=== PATIENT | female | born 1980 | race Caucasian/White ===

== ENCOUNTER 2016-11-14 13:57 | Emergency (ER) | payer OTHER ==
[~2016-11-14] VITALS: Ht 170.2 cm; Wt 89.4 kg
[~2016-11-14 13:57] MED LIST: IBUP80TA PO
[2016-11-14 16:11] VITALS: BP 139/88
--- NOTE | 2016-11-14 16:59 | REP ---
PELVIC ULTRASOUND: Real-time sonographic evaluation of the pelvis was performed utilizing transabdominal and endovaginal technique. The bladder measures 4.3 x 2.0 x 6.3 cm. The uterus measures 7.8 x 4.3 x 6.3 cm. Focal rounded echogenic structure in the endometrial cavity surrounded by a tiny amount of fluid may represent a polyp. This measures 1.0 x 1.0 x 1.4 cm. Right ovary measures 2.5 x 1.8 x 2.4 cm and contains a 6 mm echogenic focus which may represent a tiny dermoid. The left ovary measures 2.6 x 1.2 x 2.1 cm. There is no evidence of ovarian torsion with blood flow seen in each ovary with duplex Doppler evaluation. There is no other evidence of adnexal mass. There is trace free fluid. IMPRESSION: Probable endometrial polyp measuring 1.0 x 1.0 x 1.4 cm. Surrounded by a tiny amount of endometrial fluid. No torsion. Trace free fluid. 6 mm echogenic focus in the right ovary may represent a tiny dermoid. Signed by Julian Brewer MD 11/14/2016 05:01 P
== END 2016-11-14 16:23 | disposition home or self-care (01) ==
LOC: M ED 15:52
DX: N93.9 Abnormal uterine and vaginal bleeding, unspecified (principal)

== ENCOUNTER 2016-12-07 06:07 | Day surgery (SDC) | payer OTHER ==
[~2016-12-07] VITALS: Ht 170.2 cm; Wt 97.5 kg
[2016-12-07] VITALS (8 sets, daily range): BP systolic 108–129; BP diastolic 58–80
[2016-12-07] MEDS ORDERED: LR 1,000 ML IV ONE (06:15)
[2016-12-07] MEDS ORDERED: ACETAMINOPHEN 650 MG SUPP PR ONE (06:30)
[2016-12-07 06:42] LABS: MEAN CORPUSCULAR HEMOGLOBIN 33.9 pg (27.0-33.0); MEAN CORPUSCULAR HGB CONC 34.5 g/dl (32.0-36.5); MEAN CORPUSCULAR VOLUME 98.3 fl (80.0-96.0); RED CELL DISTRIBUTION WIDTH 13.7 % (11.5-14.5); WHITE BLOOD COUNT 9.7 K/mm3 (4.0-10.0)
[2016-12-07 06:55] LABS: ANION GAP 10 MEQ/L (8-16); BLOOD UREA NITROGEN 7 MG/DL (7-18); CARBON DIOXIDE LEVEL 21 MEQ/L (21-32); CHLORIDE LEVEL 109 MEQ/L (98-107); CREATININE FOR GFR 0.89 MG/DL (0.55-1.02); GLOMERULAR FILTRATION RATE > 60.0 (>60); GLUCOSE, FASTING 91 MG/DL (70-105); POTASSIUM SERUM 3.5 MEQ/L (3.5-5.1); SODIUM LEVEL 140 MEQ/L (136-145)
[2016-12-07] MEDS ORDERED: ACETAMINOPHEN 650 MG SUPP As Ordered ONE (07:10)
[2016-12-07] MEDS ORDERED: BUPIVACAINE/EPIN 0.25% 30 ML VIAL As Ordered ONE (07:10)
[2016-12-07] MEDS ORDERED: VASOPRESSIN INJ 20 UNITS/ML VIAL As Ordered ONE (07:10)
[2016-12-07] MEDS ORDERED: PROPOFOL 200 MG/20 ML VIAL As Ordered ONE (07:11)
[2016-12-07] MEDS ORDERED: ROCURONIUM BROMIDE 50 MG/5 ML VIAL As Ordered ONE (07:12)
[2016-12-07] MEDS ORDERED: MIDAZOLAM INJ 2 MG/2 ML VIAL (J2250) As Ordered ONE (07:12)
[2016-12-07] MEDS ORDERED: LIDOCAINE 2% INJ 100 MG/5 ML SDV (FOR ANES.) As Ordered ONE (07:12)
[2016-12-07] MEDS ORDERED: fentaNYL 100 MCG/2 ML INJECTION (J3010) As Ordered ONE ×2 (07:12→08:03)
[2016-12-07] MEDS ORDERED: ONDANSETRON 4MG/2ML VIAL (J2405) As Ordered ONE (07:12)
[2016-12-07] MEDS ORDERED: dexameTHASONE 4 MG/ML 1ML VIAL (J1100) As Ordered ONE (07:18)
[2016-12-07] MEDS ORDERED: ePHEDrine SULFATE 25 MG/5 ML(5MG/ML) SYRINGE As Ordered ONE (07:49)
[2016-12-07] MEDS ORDERED: PERC5TAB6 PO (07:58)
[2016-12-07] MEDS ORDERED: HYDROmorphone HCL 2 MG/ML 1ML VIAL (J1170) As Ordered ONE (08:11)
[2016-12-07] MEDS ORDERED: FLUORESCEIN 10% (100MG/ML) 5 ML VIAL As Ordered ONE (08:42)
[2016-12-07] MEDS ORDERED: GLYCOPYRROLATE INJ 0.2 MG/ML 2 ML VIAL As Ordered ONE (08:57)
[2016-12-07] MEDS ORDERED: NEOSTIGMINE 1MG/ML 5 ML SYRINGE (J2710) As Ordered ONE (08:57)
[2016-12-07] MEDS ORDERED: MORPHINE 10 MG/ML 1ML VIAL As Ordered ONE (09:49)
[2016-12-07] MEDS: MORPHINE 2 MG/ML 1ML SYRINGE IV PRN ×3 (09:52→10:30)
[2016-12-07] MEDS ORDERED: PERCOCET 5MG/325MG TAB As Ordered ONE (10:03)
[2016-12-07] MEDS ORDERED: METOCLOPRAMIDE INJ 10MG/2ML VIAL (J2765) IV PRN (10:15)
[2016-12-07] MEDS ORDERED: ONDANSETRON 4MG/2ML VIAL (J2405) IV PRN (10:15)
[2016-12-07] MEDS ORDERED: fentaNYL 100 MCG/2 ML INJECTION (J3010) IV PRN (10:15)
[2016-12-07] MEDS ORDERED: LR 1,000 ML IV SCH ×2 (10:15)
[2016-12-07] MEDS ORDERED: PERCOCET 5MG/325MG TAB PO PRN (10:15)
[2016-12-07] MEDS ORDERED: IBUPROFEN 800 MG TAB PO SCH (10:15)
[2016-12-07] MEDS ORDERED: SIMETHICONE 80 MG CHEW TAB PO SCH (10:30)
[2016-12-07] MEDS: SIMETHICONE 80 MG CHEW TAB PO SCH ×2 (13:01→18:25)
[2016-12-07] MEDS: PERCOCET 5MG/325MG TAB PO PRN ×2 (14:09→19:30)
[2016-12-07] MEDS: IBUPROFEN 800 MG TAB PO SCH (18:25)
--- NOTE | 2016-12-07 20:58 | RO ---
DATE OF PROCEDURE: 12/07/2016 SUMMARY: This is a 36-year-old female with extensive history of normal uterine bleeding. She is post an endometrial ablation. She also complained of pelvic pain and was found to have and endometrial polyp. After counseling, a decision was made for total laparoscopic hysterectomy, removal of both tubes and preservation of the ovary if possible. PREOPERATIVE DIAGNOSES: 1. Abnormal uterine bleeding post endometrial ablation. 2. Pelvic pain. 3. Endometrial polyp. POSTOPERATIVE DIAGNOSES: 1. Abnormal uterine bleeding post endometrial ablation. 2. Pelvic pain. 3. Endometrial polyp. 4. Pelvic adhesion. ANESTHESIA: General. SURGEON: Rodríguez Gee DO TRACTOR TRAILER DRIVER: ANESTHESIA: General. COMPLICATIONS: None. ESTIMATED BLOOD LOSS: Less than 50 mL. PROCEDURE: 1. Total laparoscopic hysterectomy. 2. Bilateral salpingectomies 3. Lysis of adhesions. 4. Cystoscopy. FINDINGS: Normal-appearing uterus adherent to the lower uterine segment as well as the pelvic sidewall. Cystoscopy: Bilateral urethral jets were noted with yellow dye coming out of the ureters. No evidence of any bladder injury noted. DESCRIPTION OF PROCEDURE: After obtaining informed consent, the patient was taken to the operating room where general anesthetic was found to be adequate. She was then draped and prepped usual sterile fashion in dorsal lithotomy position. At this point, a Becerril catheter was placed in the bladder for drainage. We then turned our attention to the vagina where HUMI 2 uterine manipulator was placed. After proper placement of the HUMI 2 uterine manipulator, I then went up to the patient's abdominal area. A 10 mm supraumbilical incision was made using the Veress needle. The abdomen was insufflated with CO2 gas to approximately 3.5 liters and 11 mm trocar was inserted under direct visualization. At this point, 11 mm port was placed on the left side and a trocar was inserted under direct visualization and a 5 mm port was placed on the right side. The patient was placed in Trendelenburg. The fallopian tube was then identified. The adhesions around the fallopian tubes were removed using the KWAME Harmonic scalpel. The fallopian tube was then dissected off through the mesosalpinx up to the utero-ovarian ligament. The utero-ovarian ligament was then cauterized and cut. The round ligament also cauterized and cut. At this point the anterior leaflet of the broad ligament was dissected to create a bladder flap. The uterine arteries were skeletonized and uterine artery was then coagulated and cut using the KWAME Harmonic scalpel. The opposite side was done in a similar fashion. The bladder was found to be adherent to the lower uterine segment. This was carefully taken down with the KWAME Harmonic scalpel completing the bladder flap. The bladder was pushed out of the operative field. The uterine manipulator cup could be felt at the lower uterine segment in the vagina. Anterior colpotomy was performed. A posterior colpotomy also performed in a similar fashion. At this point the uterus, cervix and the fallopian tubes was removed through the vagina and left in the vagina to maintain pneumoperitoneum. An Endo stitch was then introduced into the abdominal cavity and the vaginal cuff was closed in a running fashion using the V-Loc suture through the Endo stitch. Good hemostasis noted. The peritoneum over the vaginal cuff was also closed. The pelvis copiously irrigated with normal saline and suctioned out. A small amount of oozing was noted at the right ovary where a Kleppinger was used to coagulate that tiny vessel. Good hemostasis noted. 1 mL of Furacin was given by the anesthesiologist, IV. I then went to the patient's vagina, retrograde filled the bladder with approximately 250 mL. The Becerril catheter was removed. A cystoscope was inserted. Bilateral ureteral jets noted with yellow dye coming out of the ureters. No evidence of any bladder injury noted. At this point, the cystoscope was removed. The Becerril catheter was replaced and the bladder was drained. We then closed the laparoscopic ports using #3-0 Vicryl and Dermabond. 0.25% Marcaine was placed for postoperative pain. The patient tolerated the procedure well. She was then transferred to recovery room in stable condition.
[2016-12-08] VITALS: BP 108/56
[2016-12-08] MEDS: SIMETHICONE 80 MG CHEW TAB PO SCH ×2 (00:16→05:48)
[2016-12-08] MEDS: IBUPROFEN 800 MG TAB PO SCH ×2 (00:17→05:48)
[2016-12-08 04:00] VITALS: BP 114/73
[2016-12-08] MEDS: PERCOCET 5MG/325MG TAB PO PRN (07:45)
[2016-12-08 08:00] VITALS: BP 116/63
== END 2016-12-08 10:25 | disposition home or self-care (01) ==
LOC: M SDC 06:07 → M PED 10:45 → M SDC 12-08 10:25
PROVIDERS: ATTEND Obstetrics & Gynecology
DX: N93.9 Abnormal uterine and vaginal bleeding, unspecified (principal); N84.0 Polyp of corpus uteri; N73.6 Female pelvic peritoneal adhesions (postinfective); K90.0 Celiac disease; K21.9 Gastro-esophageal reflux disease without esophagitis; F41.9 Anxiety disorder, unspecified; G43.909 Migraine, unspecified, not intractable, without status migrainosus; F17.210 Nicotine dependence, cigarettes, uncomplicated; Z98.51 Tubal ligation status

== ENCOUNTER 2017-07-26 14:47 | Emergency (ER) | payer OTHER ==
[2017-07-26] MEDS: NS 1,000 ML IV (15:45)
[2017-07-26] MEDS: MORPHINE 4 MG/ML 1ML SYRINGE IV ×2 (15:45→17:27)
[2017-07-26 15:47] LABS: BASO % 0.4 % (0.0-1.0); EOS % 0.4 % (0.0-3.0); HEMOGLOBIN 14.2 g/dl (12.0-16.0); IMMATURE GRANULOCYTE % 0.4 % (0-0); LYMPH # 2.5 10^3/uL (1.5-4.5); LYMPH % 26.1 % (24.0-44.0); MEAN CORPUSCULAR HEMOGLOBIN 32.9 pg (27.0-33.0); MEAN CORPUSCULAR HGB CONC 34.6 g/dl (32.0-36.5); MEAN CORPUSCULAR VOLUME 94.9 fl (80.0-96.0); MONO # 0.6 10^3/uL (0.0-0.8); MONO % 6.1 % (0.0-5.0); NEUTROPHILS # 6.4 10^3/uL (1.8-7.7); NEUTROPHILS % 66.6 % (36.0-66.0); PLATELET COUNT, AUTOMATED 501 10^3/uL (150-450); RED BLOOD COUNT 4.32 10^6/uL (4.00-5.40); RED CELL DISTRIBUTION WIDTH 12.9 % (11.5-14.5); WHITE BLOOD COUNT 9.6 10^3/uL (4.0-10.0)
[2017-07-26 15:50] LABS: KETONE, URINE AUTO RFX 1+ mg/dL (NEGATIVE); LEUKOCYTE ESTERASE UR AUTO RFX NEGATIVE (NEGATIVE); MUCUS, URINE RFX SMALL (NEGATIVE); NITRITE, URINE AUTO RFX NEGATIVE (NEGATIVE); RBC, URINE AUTO RFX 3 /HPF (0-3); SPECIFIC GRAVITY UR AUTO RFX 1.019 (1.002-1.035); SQUAM EPITHELIAL CELL UR AURFX 2 /HPF (0-6); WBC, URINE AUTO RFX 1 /HPF (0-3)
[2017-07-26] MEDS: GASTROGRAFIN SOLUTION 30ML (Q9963) PO ×2 (15:54→16:30)
[2017-07-26 15:56] LABS: CONTROL LINE HCG INT CTR LINE PRESENT; HCG, SERUM QUALITATIVE NEGATIVE (NEGATIVE)
[2017-07-26 16:01] LABS: ALKALINE PHOSPHATASE 73 U/L (45-117); ALT/SGPT 22 U/L (12-78); ANION GAP 13 MEQ/L (8-16); AST/SGOT 24 U/L (7-37); BILIRUBIN,DIRECT < 0.1 MG/DL (0.0-0.2); BILIRUBIN,TOTAL 0.6 MG/DL (0.2-1.0); BLOOD UREA NITROGEN 11 MG/DL (7-18); CARBON DIOXIDE LEVEL 21 MEQ/L (21-32); CHLORIDE LEVEL 105 MEQ/L (98-107); CREATININE FOR GFR 0.81 MG/DL (0.55-1.02); GLOMERULAR FILTRATION RATE > 60.0 (>60); GLUCOSE, FASTING 90 MG/DL (70-105); LIPASE 198 U/L (73-393); POTASSIUM SERUM 3.5 MEQ/L (3.5-5.1); SODIUM LEVEL 139 MEQ/L (136-145)
[2017-07-26] MEDS ORDERED: ISOVUE-370 76% 100ML VIAL (Q9967) As Ordered (17:09)
== END 2017-07-26 18:39 | disposition home or self-care (01) ==
LOC: M ED 14:47
DX: K42.9 Umbilical hernia without obstruction or gangrene (principal); K90.0 Celiac disease; G43.909 Migraine, unspecified, not intractable, without status migrainosus; M54.9 Dorsalgia, unspecified; F17.210 Nicotine dependence, cigarettes, uncomplicated
CPT/HCPCS: Q9963

== ENCOUNTER 2017-09-06 10:38 | Emergency (ER) | payer OTHER ==
[2017-09-06 11:31] LABS: BEDSIDE GLUCOSE 97 MG/DL (70-105)
[2017-09-06] MEDS: NS 1,000 ML IV (11:49)
[2017-09-06] MEDS: ONDANSETRON 4MG/2ML VIAL (J2405) IV (11:49)
[2017-09-06 11:56] LABS: BASO % 0.2 % (0.0-1.0); EOS % 0.1 % (0.0-3.0); HEMATOCRIT 43.6 % (36.0-47.0); HEMOGLOBIN 15.3 g/dl (12.0-16.0); IMMATURE GRANULOCYTE % 0.4 % (0-3.0); LYMPH # 3.2 10^3/uL (1.5-4.5); LYMPH % 29.3 % (24.0-44.0); MEAN CORPUSCULAR HEMOGLOBIN 31.8 pg (27.0-33.0); MEAN CORPUSCULAR HGB CONC 35.1 g/dl (32.0-36.5); MEAN CORPUSCULAR VOLUME 90.6 fl (80.0-96.0); MONO # 0.6 10^3/uL (0.0-0.8); NEUTROPHILS # 7.1 10^3/uL (1.8-7.7); PLATELET COUNT, AUTOMATED 486 10^3/uL (150-450); RED BLOOD COUNT 4.81 10^6/uL (4.00-5.40); RED CELL DISTRIBUTION WIDTH 12.6 % (11.5-14.5); WHITE BLOOD COUNT 10.9 10^3/uL (4.0-10.0)
[2017-09-06 12:12] LABS: AMORPHOUS SEDIMENT RFX SMALL (NEGATIVE); KETONE, URINE AUTO RFX 1+ mg/dL (NEGATIVE); LEUKOCYTE ESTERASE UR AUTO RFX NEGATIVE (NEGATIVE); MUCUS, URINE RFX SMALL (NEGATIVE); NITRITE, URINE AUTO RFX NEGATIVE (NEGATIVE); RBC, URINE AUTO RFX 1 /HPF (0-3); SPECIFIC GRAVITY UR AUTO RFX 1.019 (1.002-1.035); SQUAM EPITHELIAL CELL UR AURFX 4 /HPF (0-6); WBC, URINE AUTO RFX 3 /HPF (0-3)
[2017-09-06] MEDS ORDERED: KETOROLAC 30 MG/ML VIAL (J1885) IV (12:15)
[2017-09-06 12:16] LABS: ALBUMIN 4.2 GM/DL (3.2-5.2); ALBUMIN/GLOBULIN RATIO 1.17 (1.00-1.93); ALKALINE PHOSPHATASE 74 U/L (45-117); ALT/SGPT 20 U/L (12-78); ANION GAP 11 MEQ/L (8-16); AST/SGOT 14 U/L (7-37); BILIRUBIN,DIRECT 0.1 MG/DL (0.0-0.2); BILIRUBIN,TOTAL 0.6 MG/DL (0.2-1.0); BLOOD UREA NITROGEN 10 MG/DL (7-18); CALCIUM LEVEL 9.4 MG/DL (8.5-10.1); CARBON DIOXIDE LEVEL 24 MEQ/L (21-32); CHLORIDE LEVEL 103 MEQ/L (98-107); CREATININE FOR GFR 0.86 MG/DL (0.55-1.30); GLOMERULAR FILTRATION RATE > 60.0 (>60); GLUCOSE, FASTING 96 MG/DL (70-100); POTASSIUM SERUM 3.8 MEQ/L (3.5-5.1); SODIUM LEVEL 138 MEQ/L (136-145); TOTAL PROTEIN 7.8 GM/DL (6.4-8.2)
[2017-09-06] MEDS: KETOROLAC 30 MG/ML VIAL (J1885) IV (12:22)
[2017-09-06 12:23] LABS: INFLUENZA A AMPLIFICATION NEGATIVE (NEGATIVE); INFLUENZA B AMPLIFICATION NEGATIVE (NEGATIVE)
== END 2017-09-06 13:54 | disposition home or self-care (01) ==
LOC: M ED 10:38
DX: J20.9 Acute bronchitis, unspecified (principal); F17.200 Nicotine dependence, unspecified, uncomplicated; R11.10 Vomiting, unspecified
CPT/HCPCS: J2405

== ENCOUNTER 2017-11-01 07:24 | Emergency (ER) | payer OTHER ==
[2017-11-01] MEDS: NS 1,000 ML IV ×2 (08:09→09:20)
[2017-11-01] MEDS: METOCLOPRAMIDE INJ 10MG/2ML VIAL (J2765) IV (08:09)
[2017-11-01 08:14] LABS: BASO % 0.4 % (0.0-1.0); EOS % 0.2 % (0.0-3.0); HEMATOCRIT 44.5 % (36.0-47.0); HEMOGLOBIN 15.5 g/dl (12.0-15.5); IMMATURE GRANULOCYTE % 0.3 % (0-3.0); LYMPH # 1.9 10^3/uL (1.5-4.5); LYMPH % 19.1 % (24.0-44.0); MEAN CORPUSCULAR HEMOGLOBIN 32.3 pg (27.0-33.0); MEAN CORPUSCULAR HGB CONC 34.8 g/dl (32.0-36.5); MEAN CORPUSCULAR VOLUME 92.7 fl (80.0-96.0); MONO # 0.4 10^3/uL (0.0-0.8); NEUTROPHILS # 7.4 10^3/uL (1.8-7.7); PLATELET COUNT, AUTOMATED 473 10^3/uL (150-450); RED CELL DISTRIBUTION WIDTH 13.3 % (11.5-14.5); WHITE BLOOD COUNT 9.7 10^3/uL (4.0-10.0)
[2017-11-01 08:20] LABS: APPEARANCE, URINE CLOUDY (CLEAR); BACTERIA, URINE AUTO 1+ (NEGATIVE); BILIRUBIN, URINE AUTO NEGATIVE (NEGATIVE); BLOOD, URINE BLOOD 1+ (NEGATIVE); COLOR, URINE YELLOW (YELLOW); GLUCOSE, URINE (UA) AUTO NEGATIVE (NEGATIVE); KETONE, URINE AUTO TRACE mg/dL (NEGATIVE); LEUKOCYTE ESTERASE, URINE AUTO NEGATIVE (NEGATIVE); MUCUS, URINE SMALL (NEGATIVE); NITRITE, URINE AUTO NEGATIVE (NEGATIVE); PROTEIN, URINE AUTO 1+ mg/dL (NEGATIVE); RBC, URINE AUTO 1 /HPF (0-3); SPECIFIC GRAVITY URINE AUTO 1.028 (1.002-1.035); SQUAMOUS EPITHELIAL CELL UR AU 13 /HPF (0-6); UROBILINOGEN, URINE AUTO 0.2 mg/dL (0.0-2.0); WBC, URINE AUTO 1 /HPF (0-3)
[2017-11-01 08:26] LABS: D-DIMER QUANT 328.7 ng/ml (<500)
[2017-11-01 08:47] LABS: ALBUMIN/GLOBULIN RATIO 0.91 (1.00-1.93); ALKALINE PHOSPHATASE 64 U/L (45-117); ALT/SGPT 25 U/L (12-78); AMYLASE 55 U/L (25-115); ANION GAP 14 MEQ/L (8-16); AST/SGOT 22 U/L (7-37); BILIRUBIN,DIRECT < 0.1 MG/DL (0.0-0.2); BILIRUBIN,TOTAL 0.5 MG/DL (0.2-1.0); BLOOD UREA NITROGEN 12 MG/DL (7-18); C REACTIVE PROTEIN QUANTITATIV < 0.30 MG/DL (0.00-0.30); CALCIUM LEVEL 9.4 MG/DL (8.5-10.1); CARBON DIOXIDE LEVEL 17 MEQ/L (21-32); CHLORIDE LEVEL 106 MEQ/L (98-107); CPK CREATINE PHOSPHOKINASE 95 U/L (26-192); CREATININE FOR GFR 1.15 MG/DL (0.55-1.30); GLOMERULAR FILTRATION RATE 56.5 (>60); GLUCOSE, FASTING 140 MG/DL (70-100); LIPASE 203 U/L (73-393); POTASSIUM SERUM 3.3 MEQ/L (3.5-5.1); SODIUM LEVEL 137 MEQ/L (136-145); TOTAL PROTEIN 8.4 GM/DL (6.4-8.2); TROPONIN I < 0.02 NG/ML (< 0.10)
[2017-11-01 08:48] LABS: CK-MB VALUE MASS 1.1 NG/ML (<3.6); HCG, SERUM QUANTITATIVE < 1.0 MIU/ML; MB/CK RELATIVE INDEX 1.15 (< OR =4)
[2017-11-01 08:55] LABS: LACTIC ACID SEPSIS PROTOCOL 5.1 MMOL/L (0.4-2.0)
[2017-11-01 11:03] LABS: LACTIC ACID SEPSIS PROTOCOL 1.4 MMOL/L (0.4-2.0)
== END 2017-11-01 11:29 | disposition home or self-care (01) ==
LOC: M ED 07:24
DX: E86.0 Dehydration (principal); K90.0 Celiac disease; F41.9 Anxiety disorder, unspecified; F17.200 Nicotine dependence, unspecified, uncomplicated; Z87.42 Personal history of other diseases of the female genital tract; Z98.890 Other specified postprocedural states
CPT/HCPCS: J2765

== ENCOUNTER 2019-04-12 10:58 | Emergency (ER) | payer MEDICAID, OTHER, SELFPAY ==
[~2019-04-12] VITALS: Ht 170.2 cm; Wt 91.1 kg
[~2019-04-12 10:58] MED LIST changes: +DOXY-350 PO; +MUCI600T37 PO; +PERC5TAB12 PO; +VENTAER IN; +ZOFR4TAB14 PO
[2019-04-12] MEDS ORDERED: NS 1,000 ML IV ONE (11:45)
[2019-04-12] MEDS ORDERED: KETOROLAC 30 MG/ML VIAL (J1885) IV ONE (11:45)
[2019-04-12 11:46] LABS: BASO # 0.1 10^3/uL (0.0-0.2); BASO % 0.5 % (0.0-1.0); EOS # 0.1 10^3/uL (0.0-0.5); HEMOGLOBIN 15.2 g/dl (12.0-15.5); LYMPH # 3.6 10^3/uL (1.5-5.0); LYMPH % 33.9 % (24.0-44.0); MEAN CORPUSCULAR HEMOGLOBIN 32.1 pg (27.0-33.0); MEAN CORPUSCULAR HGB CONC 34.5 g/dl (32.0-36.5); MONO # 0.8 10^3/uL (0.0-0.8); MONO % 7.2 % (0.0-5.0); NEUTROPHILS # 6.1 10^3/uL (1.5-8.5); NEUTROPHILS % 56.8 % (36.0-66.0); PLATELET COUNT, AUTOMATED 475 10^3/uL (150-450); RED BLOOD COUNT 4.73 10^6/uL (4.00-5.40); WHITE BLOOD COUNT 10.7 10^3/uL (4.0-10.0)
[2019-04-12] MEDS ORDERED: MORPHINE 2 MG/ML 1ML VIAL (J2270) IV ONE (12:00)
[2019-04-12 12:02] LABS: ALBUMIN 3.5 GM/DL (3.2-5.2); ALT/SGPT 26 U/L (12-78); BILIRUBIN,DIRECT < 0.1 MG/DL (0.0-0.2); BILIRUBIN,TOTAL 0.2 MG/DL (0.2-1.0); BLOOD UREA NITROGEN 12 MG/DL (7-18); CALCIUM LEVEL 8.6 MG/DL (8.5-10.1); CARBON DIOXIDE LEVEL 22 MEQ/L (21-32); CHLORIDE LEVEL 109 MEQ/L (98-107); CREATININE FOR GFR 0.84 MG/DL (0.55-1.30); GLOMERULAR FILTRATION RATE > 60.0 (>60); GLUCOSE, FASTING 86 MG/DL (70-100); LIPASE 219 U/L (73-393); POTASSIUM SERUM 4.2 MEQ/L (3.5-5.1); SODIUM LEVEL 139 MEQ/L (136-145); TOTAL PROTEIN 6.8 GM/DL (6.4-8.2)
--- NOTE | 2019-04-12 13:14 | REP ---
CT of the abdomen and pelvis without IV and oral contrast for right upper quadrant pain and right flank pain: Comparison is 07/26/2017. The visualized lung chapa are unremarkable except for dependent atelectasis. The unenhanced hepatic parenchyma, gallbladder, pancreas and spleen are unremarkable. The adrenals are unremarkable. The kidneys are unremarkable, there are no renal calculi. No perinephric stranding. No hydronephrosis. There is no hydroureter. No ureteral calculi. No bladder calculi. The bowel and mesentery are unremarkable. Pelvis: There are appendicoliths. The appendix is otherwise unremarkable. The bladder is unremarkable. No bladder calculi. There is a ligation clip on the right. There is no ligation clip on the left, however, there were bilateral tubal ligation clips on a supine plain film view of the abdomen 02/19/2014. The the patient reportedly has had a hysterectomy. Vaginal cuff and adnexa are otherwise unremarkable. There is no ascites or adenopathy. There is a fat-containing umbilical hernia, unchanged. Impression: The gallbladder, pancreas and spleen are unremarkable. There is no hydronephrosis or hydroureter. There are no renal, ureteral or bladder calculi. There is a fat-containing umbilical hernia, unchanged. There is no ascites or adenopathy. No mass. There is a hysterectomy. There is a remaining right tubal ligation clip in the pelvis. No left ligation clip. There are appendicoliths, however the appendix is otherwise unremarkable. Electronically Signed by Julian Rosen MD 04/12/2019 01:05 P
[2019-04-12 13:45] VITALS: BP 108/66
== END 2019-04-12 14:06 | disposition home or self-care (01) ==
LOC: M ED 10:58
DX: R10.11 Right upper quadrant pain (principal); R11.2 Nausea with vomiting, unspecified; K90.0 Celiac disease; F17.210 Nicotine dependence, cigarettes, uncomplicated
CPT/HCPCS: 74176; 80048; 80076; 81001; 83690; 84702; 85025; 96361; 96374; 96375; 99284; J1885; J2270

== ENCOUNTER → 2021-06-12 | Outpatient (CLI) | payer OTHER ==
--- NOTE | 2021-06-12 17:51 | REP ---
INDICATION: L SHOULDER PAIN, R/O TENDONITIS. COMPARISON: None. TECHNIQUE: Three views of the left shoulder were obtained. FINDINGS: There is no evidence of fracture or dislocation. The glenohumeral and acromioclavicular joints are normal. The periarticular soft tissues are normal. The visualized left lung is normal. IMPRESSION: Normal left shoulder. <Electronically signed by Haroon Rose > 06/12/21 [id number]
== END ==
LOC: M RAD 17:30
PROVIDERS: ATTEND Physician Assistant Medical
DX: M25.512 Pain in left shoulder (principal)

== ENCOUNTER → 2023-05-23 | Outpatient (CLI) | payer OTHER ==
[~2023-05-23] MED LIST changes: -DOXY-350 PO; +DOXY-444 PO; +E-Z-GAS II EFFERVESCENT PACKET (SODIUM BICARB./CITRIC ACID/SIMETHICONE) As Ordered ONE; +E-Z-HD 98% w/w 340GM SUSP BTL As Ordered ONE; +E-Z-PAQUE 96% w/w SUSP 176GM BTL As Ordered ONE
== END ==
LOC: M RAD 07:57
PROVIDERS: ATTEND Surgery
DX: R19.7 Diarrhea, unspecified (principal)

== ENCOUNTER 2024-01-13 11:20 | Day surgery (SDC) | payer OTHER ==
[~2024-01-13] VITALS: Ht 167.6 cm; Wt 102.6 kg
[~2024-01-13 11:20] MED LIST changes: +DOXY-440 PO; -DOXY-444 PO; -E-Z-GAS II EFFERVESCENT PACKET (SODIUM BICARB./CITRIC ACID/SIMETHICONE) As Ordered ONE; -E-Z-HD 98% w/w 340GM SUSP BTL As Ordered ONE; -E-Z-PAQUE 96% w/w SUSP 176GM BTL As Ordered ONE; +NS 1,000 ML IV ONE
[2024-01-13 13:08] VITALS: BP 118/72; O2SAT 97
== END 2024-01-13 13:15 | disposition home or self-care (01) ==
LOC: M OPP 11:20
PROVIDERS: ATTEND Internal Medicine Gastroenterology
DX: K64.8 Other hemorrhoids (principal); K62.89 Other specified diseases of anus and rectum; R19.7 Diarrhea, unspecified; K44.9 Diaphragmatic hernia without obstruction or gangrene; K29.70 Gastritis, unspecified, without bleeding; K31.7 Polyp of stomach and duodenum; K31.89 Other diseases of stomach and duodenum; Z79.1 Long term (current) use of non-steroidal anti-inflammatories (NSAID)

== ENCOUNTER 2024-02-07 09:07 | Day surgery (SDC) | payer OTHER ==
[~2024-02-07] VITALS: Ht 167.6 cm; Wt 102.8 kg
[~2024-02-07 09:07] MED LIST changes: -NS 1,000 ML IV ONE
[2024-02-07] MEDS: NS 1,000 ML IV ONE (10:18)
[2024-02-07] MEDS ORDERED: propofoL 200 MG/20 ML VIAL As Ordered ONE (11:22)
[2024-02-07 11:39] VITALS: TEMP 97.7
[2024-02-07 11:56] VITALS: BP 125/85; O2SAT 99
== END 2024-02-07 12:09 | disposition home or self-care (01) ==
LOC: M OPP 09:07
PROVIDERS: ATTEND Internal Medicine Gastroenterology
DX: D18.09 Hemangioma of other sites (principal); K90.0 Celiac disease; Z86.010 Personal history of colon polyps; F17.210 Nicotine dependence, cigarettes, uncomplicated; Z90.710 Acquired absence of both cervix and uterus

== ENCOUNTER → 2024-10-12 | Outpatient (REF) | payer OTHER | LOC: M SFHCPLAZ 09:56 | PROVIDERS: ATTEND Family Medicine | DX: Z00.00 Encounter for general adult medical examination without abnormal findings (principal) ==

== ENCOUNTER → 2025-04-28 | Outpatient (CLI) | payer OTHER | LOC: M WHC 08:34 | PROVIDERS: ATTEND Family Medicine | DX: Z12.31 Encounter for screening mammogram for malignant neoplasm of breast (principal) ==